=== PATIENT | male | born 1960 | race Caucasian/White ===

== ENCOUNTER 2019-04-27 16:10 | Emergency (ER) | payer BC, OTHER ==
[2019-04-27 16:32] VITALS: BP 137/85
[2019-04-27] MEDS ORDERED: Lidocaine 1% MPF ** 5 ML VIAL INJ ONE (16:54)
[2019-04-27] MEDS ORDERED: Cephalexin CAP* 500 MG PO ONE (17:30)
--- NOTE | 2019-04-27 17:36 | UC ---
Skin Complaint HPI - HPI Summary HPI Summary: 58-year-old male comes in with a chief complaint of a painful red swelling in the skin of his right shoulder. He's had a mobile soft tissue mass in that area for years. He's been told that it's benign. In the last couple of days become red and tender to palpation. No fevers no chills feels well otherwise.. Any kind of pressure on it increases the pain no pressure decreases the pain. - History of Current Complaint Chief Complaint: [facility] Time Seen by Provider: 04/27/19 16:49 Stated Complaint: RIGHT SHOULDER SKIN ISUE Pain Intensity: 3 - Allergy/Home Medications Allergies/Adverse Reactions: Allergies Allergy/AdvReac Type Severity Reaction Status Date / Time No Known Allergies Allergy Verified 04/27/19 16:27 Home Medications: Home Medications Hydrochlorothiazide TAB* [Hydrodiuril TAB*] 1 tab QAM 04/27/19 [History Confirmed 04/27/19] Omeprazole 1 tab QAM 04/27/19 [History Confirmed 04/27/19] Rosuvastatin Calcium [Crestor] 1 tab QAM 04/27/19 [History Confirmed 04/27/19] PMH/Surg Hx/FS Hx/Imm Hx Previously Healthy: Yes Endocrine History: Dyslipidemia Cardiovascular History: Hypertension GI/ History: Gastroesophageal Reflux - Surgical History Surgical History: Yes Surgery Procedure, Year, and Place: hernia. RIGHT foot (nerve removed) - Family History Known Family History: Positive: Non-Contributory - Social History Alcohol Use: Occasionally Substance Use Type: None Smoking Status (MU): Never Smoked Tobacco Review of Systems All Other Systems Reviewed And Are Negative: Yes Constitutional: Positive: Negative Skin: Positive: Other - SEE HPI Eyes: Positive: Negative ENT: Positive: Negative Respiratory: Positive: Negative Cardiovascular: Positive: Negative Gastrointestinal: Positive: Negative Motor: Positive: Negative Neurovascular: Positive: Negative Musculoskeletal: Positive: Negative Neurological: Positive: Negative Psychological: Positive: Negative Is Patient Immunocompromised?: No Physical Exam Triage Information Reviewed: Yes Appearance: Well-Appearing, No Pain Distress, Well-Nourished Vital Signs: Initial Vital Signs Temp 98.7 F 04/27/19 16:28 Pulse 87 04/27/19 16:28 Resp 18 04/27/19 16:28 BP 137/85 04/27/19 16:28 Pulse Ox 95 04/27/19 16:28 Vital Signs Reviewed: Yes Eye Exam: Normal Eyes: Positive: Conjunctiva Clear Neck: Positive: Supple Respiratory: Positive: No respiratory distress Musculoskeletal: Positive: Strength Intact, ROM Intact Neurological: Positive: Alert Psychological: Positive: Age Appropriate Behavior Skin: Positive: Other - Over the right deltoid there is a 2.5 cm diameter subcutaneous mobile rubbery mass that has erythema and is tender to palpation. No streaking. Procedures - Incision and Drainage Right Shoulder Anesthesia: Local - 1% LIDOCAINE Instrument(s): Scalpel - #11 Packing: Gauze, Other - pus and blood came out during the incision and drainage. Culture taken. Course/Dx - Course Course Of Treatment: Because the patient reports he had swelling in that area for several years suspicious for a lipoma however copious amounts of pus were drained from the area. Culture sent. Patient started on Keflex 500 mg by mouth 4 times a day for 10 days. Plan is to follow-up with dermatology because of this is a lipoma if it needs to be excised it will need further treatment. Patient is to get reevaluated sooner if worse any questions or concerns. - Diagnoses Provider Diagnosis: Abscess of skin Discharge ED - Sign-Out/Discharge Documenting (check all that apply): Patient Departure All imaging exams completed and their final reports reviewed: No Studies - Discharge Plan Condition: Stable Disposition: HOME Prescriptions: Cephalexin CAP* [Keflex CAP*] 500 mg PO QID #40 cap Patient Education Materials: Abscess (ED) Referrals: Lenka Pollock [Primary Care Provider] - Additional Instructions: Follow up with dermatology. Get reevaluated sooner if worse any signs of infection fevers she feels ill or any other concerns. - Billing Disposition and Condition Condition: STABLE Disposition: Home
== END 2019-04-27 17:43 | disposition home or self-care (01) ==
LOC: UCCORT 16:10
DX: L02.413 Cutaneous abscess of right upper limb (principal); I10 Essential (primary) hypertension; E78.5 Hyperlipidemia, unspecified; K21.9 Gastro-esophageal reflux disease without esophagitis
CPT/HCPCS: 10060; 87070; 87077; 87205; 87640; 87641; 99212; A9270-GY; G0463

== ENCOUNTER 2024-03-01 05:38 | Observation (INO) ==
[~2024-03-01 05:38] MED LIST: Metoclopramide 5 MG/ML VIAL (10 mg) IV PRN; NS 0.45% 1000 ml BAG 1,000 ML IV SCH; Naloxone 0.4 mg VIAL 0.4 mg/ml 1 ml VIAL IV PRN; Ondansetron 4 mg VIAL 2 MG/ML 2 ml VIAL IV PRN; fentaNYL 100 mcg/2 ml 50 MCG/ML VIAL IV PRN
[2024-03-01] MEDS ORDERED: ceFAZolin 2 GM PREMIX 2 GM/50 ML BAG ONE (06:14)
[2024-03-01] MEDS: Lactated Ringers 1000 ml BAG 1,000 ML IV SCH ×2 (06:37→13:05)
[2024-03-01 06:47] LABS: Rapid COVID-19 Molecular Undetected (Undetected)
[2024-03-01] MEDS ORDERED: ROPIVACAINE 5 MG/ML 30 ML BTL (0.5%) ONE ×2 (06:58→07:07)
[2024-03-01] MEDS ORDERED: Midazolam 2 mg/2 ml VIAL 1 mg/ml 2 ml VIAL (2 mg) ONE ×2 (07:07→07:19)
[2024-03-01] MEDS ORDERED: ceFAZolin 1 GM in Dextrose 1 GM/50 ML BAG ONE (07:14)
[2024-03-01] MEDS ORDERED: Phenylephrine IV 10 MG/ML 1 ml VIAL ONE (07:14)
[2024-03-01] MEDS ORDERED: fentaNYL 100 mcg/2 ml 50 MCG/ML VIAL ONE (07:20)
[2024-03-01] MEDS ORDERED: PROPOFOL ONE (09:22)
[2024-03-01] MEDS ORDERED: Magnesium Hydroxide LIQ 30 ML UDC PO PRN (10:18)
[2024-03-01] MEDS ORDERED: Lactulose 30 ml UDC PO PRN (10:18)
[2024-03-01] MEDS ORDERED: Ondansetron ODT 4 mg TAB 4 MG TAB PO PRN (10:18)
[2024-03-01] MEDS ORDERED: Ondansetron 4 mg VIAL 2 MG/ML 2 ml VIAL IV PRN (10:18)
[2024-03-01] MEDS ORDERED: Calcium Carb (TUMS) 500 mg CHEW TAB PO PRN (10:18)
[2024-03-01] MEDS ORDERED: Morphine 2 MG/ML SYRINGE IV PRN (10:18)
[2024-03-01] MEDS: Scopolamine 1 mg/72hr PATCH TRANSDERM ONE (13:24)
[2024-03-01] MEDS: Acetaminophen IV 1 GM/100ML 1,000 MG/100 ML BAG IV ONE (13:24)
[2024-03-01] MEDS: Buffered Lidocaine 1% SYRIN 1 ml INTRADERM ONE (13:24)
[2024-03-01 15:10] VITALS: BP 141/87
[2024-03-01] MEDS: ceFAZolin 2 GM PREMIX 2 GM/50 ML BAG IV SCH (15:30)
[2024-03-01] MEDS ORDERED: ceFAZolin 2 GM PREMIX 2 GM/100 ML BAG IV SCH (16:00)
[2024-03-01] MEDS ORDERED: Magnesium Hydroxide LIQ 30 ML UDC PO SCH (21:00)
[2024-03-02] MEDS ORDERED: Vitamin THERAPEUTIC TAB PO SCH (09:00)
== END 2024-03-01 17:30 | disposition home or self-care (01) ==
LOC: OR 05:38 → SSU 05:38
PROVIDERS: ADMIT Orthopaedic Surgery Adult Reconstructive Orthopaedic Surgery; ATTEND Orthopaedic Surgery Adult Reconstructive Orthopaedic Surgery